=== PATIENT | male | born 1975 | race Caucasian/White ===

== ENCOUNTER 2017-12-21 08:32 | Emergency (ER) | payer OTHER ==
[~2017-12-21] VITALS: Ht 177.8 cm; Wt 86.0 kg
[2017-12-21 09:22] LABS: HEMATOCRIT 49.5 % (39.0-50.0); HEMOGLOBIN 17.3 g/dl (14.0-18.0); IMMATURE GRANULOCYTES 0.6 % (0.0-1.0); MEAN CELL VOLUME 91.7 fL CALC (80.0-100.0); MEAN CORPUSCULAR HGB CONC 34.9 g/L CALC (32.0-36.0); NEUT# 13.84 thou/uL (1.82-7.42); RED BLOOD COUNT 5.4 mill/uL (4.70-6.10); RED CELL DISTRI WIDTH 12.5 % (11.5-15.5)
[2017-12-21 09:39] LABS: ALBUMIN 4.8 g/dL (3.2-5.0); ALKALINE PHOSPHATASE 74 u/l (38-126); ANION GAP 18 (6-22 (CALC)); BILIRUBIN, TOTAL 0.8 mg/dL (0.0-1.4); BUN 12 mg/dL (9-20); BUN/CREATININE RATIO 13 (12-20 (CALC)); CARBON DIOXIDE 28 mmol/l (22-30); CHLORIDE 98 mmol/l (95-108); CREATININE 0.9 mg/dL (0.7-1.3); GFR > 60 ML/MIN (>=60 (CALC)); GFR FOR AFR.AMER. > 60 ML/MIN (>=60 (CALC)); LIPASE 283 u/l (23-300); POTASSIUM 4.2 mmol/l (3.5-5.1); SGOT/AST 23 u/l (17-59); SGPT/ALT 34 u/l (21-72); SODIUM 139 mmol/l (137-146); TOTAL PROTEIN 7.9 g/dL (6.3-8.2)
[2017-12-21 10:02] LABS: URINE BILIRUBIN - DIPSTICK NEGATIVE (NEGATIVE); URINE BLOOD DIPSTICK TRACE-INTACT (NEGATIVE); URINE COLOR YELLOW; URINE GLUCOSE - DIPSTICK NEGATIVE (NEGATIVE); URINE KETONE NEGATIVE (NEGATIVE); URINE LEUK ESTERASE NEGATIVE (NEGATIVE); URINE NITRITE - DIPSTICK NEGATIVE (Negative); URINE PH 7.5 (4.5-8.0); URINE PROTEIN - DIPSTICK NEGATIVE (NEG-TRACE); URINE SPECIFIC GRAVITY 1.015; URINE UROBILINOGEN - DIPSTICK 0.2 E.U./dL (0.2)
[2017-12-21 10:03] LABS: URINE CLARITY SL CLOUDY
[2017-12-21] MEDS ORDERED: RANITIDINE 150150 MG PO (11:52)
[2017-12-21] MEDS ORDERED: HYDROCO/APAP1 TA9 PO (12:24)
[2017-12-21] MEDS ORDERED: ZOFRAN4 M1 PO (12:24)
[2017-12-21 12:32] VITALS: BP 142/80
== END 2017-12-21 12:34 | disposition home or self-care (01) | DRG 392 ==
LOC: ED 08:32
PROVIDERS: Family Medicine
DX: K29.70 Gastritis, unspecified, without bleeding (principal); R10.13 Epigastric pain; R11.2 Nausea with vomiting, unspecified; R93.5 Abnormal findings on diagnostic imaging of other abdominal regions, including retroperitoneum
CPT/HCPCS: Q9967